=== PATIENT | female | born 1985 | race Two or more races ===

== ENCOUNTER → 2017-05-29 | Day surgery (SDC) | payer OTHER ==
[~2017-05-29] MED LIST: ESCITALOPRAM OX10 MG PO; GLUCOPHAGE500 MG PO; PANTOPRAZOLE SO40 MG; PRENATAL VITAM1 EAC4
--- NOTE | ~2017-05-29 | OR ---
Unit #: [id number] #: [id number] Patient: BRITTANY RED [id number] [address] [address] [id number] MR#: [id number] NAME: BRITTANY RED ROOM: Date of Procedure: 05/29/2017 Admission Date: 05/29/2017 Surgeon: Tyrel Nice M.D. : 1985 Attending Physician: Tyrel Nice M.D. Primary Care Physician: Dee Mosquera M.D. OPERATIVE REPORT JOB NOTE: CC: PRIMARY CARE PHYSICIAN PROCEDURE PERFORMED Esophagogastroduodenoscopy with biopsy. INDICATIONS FOR PROCEDURE A 31-year-old female with epigastric pain, nausea, and vomiting, undergoing evaluation with upper endoscopy. MEDICATIONS Monitored anesthesia. POSTOPERATIVE FINDINGS 1. Mild esophagitis along with small hiatal hernia. 2. Mild gastritis. Biopsies taken. 3. Normal duodenum and distal duodenum. PLAN Trial of PPIs. Reflux precautions reinforced. DESCRIPTION OF PROCEDURE The patient was explained of the procedure, risks, and benefits along with the risks and benefits of anesthesia. She was brought to the endoscopy room. Propofol anesthesia was given. Bite block was placed. The scope was passed down the mouth into esophagus, stomach, duodenum, and distal duodenum. Findings as described. Biopsies taken. Gently, I pulled it out of the patient's mouth. She tolerated it well. Dictated by... Haresh Darnell/simon TD: 05/29/2017 20:10 JOB #: [id number] Unit #: [id number] #: [id number] Patient: BRITTANY RED OPERATIVE REPORT Page 1 of 1 X Tyrel Nice MD X PROCEDURE OPERATIVE NOTE
== END | disposition home or self-care (01) ==
LOC: COPS 10:39
DX: K29.50 Unspecified chronic gastritis without bleeding (principal); K44.9 Diaphragmatic hernia without obstruction or gangrene; K21.0 Gastro-esophageal reflux disease with esophagitis; K08.409 Partial loss of teeth, unspecified cause, unspecified class; Z79.899 Other long term (current) drug therapy; Z79.84 Long term (current) use of oral hypoglycemic drugs
CPT/HCPCS: 88305; 88312